=== PATIENT | female | born 1980 | race Caucasian/White ===

== ENCOUNTER 2016-09-04 04:14 | Emergency (ER) | payer OTHER ==
[~2016-09-04] VITALS: Ht 165.1 cm; Wt 118.0 kg
[~2016-09-04 04:14] MED LIST: ~No Medications
[2016-09-04 05:44] LABS: MCH 29.8 PG (29.0-34.0); MCHC 33.2 G/DL (30.0-36.0); MCV 89.6 FL (83-99); MEAN PLAT.VOLUME 9.3 uM^3 (9.5-12.4); PLATELET COUNT 374 K/uL (156-360); RBC DIS.WIDTH-CV 12.8 % (11.8-14.6); RBC DIS.WIDTH-SD 42.1 % (39-53); RED BLOOD COUNT 4.13 M/uL (3.80-5.20); WHITE BLOOD COUNT 21.8 K/uL (4.1-10.2)
[2016-09-04 05:58] LABS: D-DIMER ELISA 2.73 mg/L FEU (< 0.57)
[2016-09-04 06:02] LABS: CHLORIDE 101 mEq/L (99-109); POTASSIUM 3.7 mEq/L (3.7-5.4); SODIUM 137 mEq/L (136-147)
[2016-09-04 06:05] LABS: GLUCOSE 116 mg/dL (70-99)
[2016-09-04 06:06] LABS: ANION GAP 11 MEQ/L (2-14)
[2016-09-04 06:07] LABS: TOTAL BILIRUBIN 1.2 mg/dL (0.0-1.0)
[2016-09-04 06:08] LABS: ALKALINE PHOSPHATASE 81 IU/L (3-129); GFR ESTIMATE (CALCULATED) > 59 mL/min/
[2016-09-04 06:10] LABS: UREA NITROGEN (BUN) 9 mg/dL (9-23)
[2016-09-04 06:12] LABS: LIPASE 79 U/L (1.0-51.0); TROP-I INTERPRETATION NEGATIVE; TROPONIN-I < 0.01 ng/mL (0.0-0.30)
[2016-09-04 10:18] VITALS: BP 111/84
== END 2016-09-04 10:20 | disposition short-term general hospital (02) ==
LOC: EME 04:14
PROVIDERS: Emergency Medicine
DX: K65.1 Peritoneal abscess (principal); D72.829 Elevated white blood cell count, unspecified; R00.2 Palpitations; Z98.84 Bariatric surgery status; Z88.0 Allergy status to penicillin; Z87.891 Personal history of nicotine dependence
CPT/HCPCS: 71020; 71275; 74177; 80053; 81003; 83605; 83690; 84484; 85027; 85379; 87040; 93005; 99281; 99285; J0696; J2270; J2405; J7030; J7050; S0030